=== PATIENT | female | born 1955 ===

== ENCOUNTER 2017-02-28 08:00 | Day surgery (SDC) | payer OTHER ==
--- NOTE | 2017-02-28 08:31 | ED PDOC ---
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 She has severe numbness and tingling to distal lateral side of hand with severe pain to thumb and wrist. She has tried extensive outpatient therapy without relief. Orthopedist: Dr. Nguyen Past Medical History Reviewed: Historical Data, Nursing Documentation, Vital Signs Vital Signs: Last Vital Signs Temp 98 F 02/28/17 15:00 Pulse 86 02/28/17 15:00 Resp 18 02/28/17 15:00 BP 120/70 02/28/17 15:00 Pulse Ox 99 02/28/17 15:35 - Medical History PMH: Asthma, Hypothyroidism Denies: Diabetes, HTN - Surgical History Surgical History: No Surg Hx - Family History Family History: States: Unknown Family Hx - Social History Drugs: Denies - Home Medications Home Medications: Ambulatory Orders Medication Instructions Recorded Levothyroxine [Synthroid] 150 mcg PO DAILY 02/28/17 oxyCODONE/Acetaminophen [Percocet 1 ea PO Q8 PRN #15 tab 02/28/17 5/325 mg Tab] - Allergies Allergies/Adverse Reactions: Allergies Allergy/AdvReac Type Severity Reaction Status Date / Time No Known Allergies Allergy Verified 02/28/17 08:36 Review of Systems ROS Statement: Except As Marked, All Systems Reviewed And Found Negative Musculoskeletal: Positive for: Other (wrist pain) Physical Exam - Reviewed Nursing Documentation Reviewed: Yes Vital Signs Reviewed: Yes - Physical Exam Appears: Positive for: Well, Non-toxic, No Acute Distress Head Exam: Positive for: ATRAUMATIC, NORMAL INSPECTION, NORMOCEPHALIC Skin: Positive for: Warm, Dry Eye Exam: Positive for: EOMI, PERRL Cardiovascular/Chest: Positive for: Regular Rate, Rhythm Respiratory: Positive for: Normal Breath Sounds. Negative for: Rales, Rhonchi, Wheezing Extremity: Positive for: Other (pain and tenderness to distal right wrist. Positive tinnel sign.) - Laboratory Results Result Diagrams: 02/28/17 09:10 02/28/17 09:10 - ECG O2 Sat by Pulse Oximetry: 100 (RA) Pulse Ox Interpretation: Normal Medical Decision Making Medical Decision Makin Case was discussed with Dr. Nguyen (orthopedist). Case discussed with hospitalist Dr. Colby. 0845 Dr. Colby at bedside. Disposition - Clinical Impression Clinical Impression: Wrist pain - Patient ED Disposition Is Patient to be Admitted: Yes - Disposition Disposition Time: 08:59 Condition: GOOD - Pt Status Changed To: Hospital Disposition Of: Observation Additional Comments - Additional Comments Additional Comments: Scribe Attestation Documented by Alan Gonzalez acting as a scribe for Bibiana Keith DO. Provider Attestation: All medical record entries made by the Scribe were at my direction and personally dictated by me. I have reviewed the chart and agree that the record accurately reflects my personal performance of the history, physical exam, medical decision making, and the department course for this patient. I have also personally directed, reviewed, and agree with the discharge instructions and disposition.
--- NOTE | 2017-02-28 09:17 | CP.PCM.HP ---
History of Present Illness - History of Present Illness History of Present Illness: Chief Complaint : right hand pain and numbness HPI: 61 y/o lady with Hx of Hypothyroidism, came in because of right hand, wrist pain and arm numbness. Patient states that she has had the symptoms for the past 5-6 months. Her pain is mostly on her right wrist and thumb and pain radiates to the forearm , this is accompanied by numbness of her hand and her arm. She also noticed some thumb weakness and at times unable to hold things things with her right hand. Her pain has worsened the past few days , now 8-9 /10 and no longer relieved by conservative treatment ( pain meds , splint ) recommended by her primary care physician . Full Code Surrogate Decision maker : sister Jacquelyn Present on Admission - Present on Admission Any Indicators Present on Admission: No Review of Systems - Review of Systems All systems: reviewed and no additional remarkable complaints except - Constitutional Constitutional: absent: Fever, Headache - EENT Eyes: absent: Change in Vision Nose/Mouth/Throat: absent: Nasal Congestion, Sore Throat, Neck Pain - Cardiovascular Cardiovascular: absent: Chest Pain, Chest Pain at Rest, Chest Pain with Activity , Diaphoresis, Dyspnea, Dyspnea on Exertion, Leg Edema - Respiratory Respiratory: absent: Cough, Dyspnea, Dyspnea on Exertion - Gastrointestinal Gastrointestinal: absent: Abdominal Pain, Nausea, Vomiting - Genitourinary Genitourinary: absent: Difficulty Urinating, Dysuria, Hematuria - Musculoskeletal Musculoskeletal: Arthralgias, Stiffness (knee), Tingling (tight hand) - Integumentary Integumentary: absent: Lesions - Neurological Neurological: Numbness ( right arm, and hand numbness). absent: Confusion, Focal Weakness - Psychiatric Psychiatric: absent: Anxiety, Depression - Endocrine Endocrine: absent: Polydipsia, Polyphagia, Polyuria - Hematologic/Lymphatic Hematologic: absent: Easy Bleeding, Easy Bruising Past Patient History - Infectious Disease Hx of Infectious Diseases: None - Tetanus Immunizations Tetanus Immunization: Unknown - Past Medical History & Family History Past Medical History?: Yes Past Family History: Reviewed and not pertinent Pertinent Family History: Colon pre cancerous - mother father - unknown hx - Past Social History Smoking Status: Never Smoked Chewing Tobacco Use: No Cigar Use: No Occupation: works in a cafeteria Alcohol: None Drugs: Denies Home Situation {Lives}: With Family Domestic Violence: Negative - CARDIAC Hx Cardiac Disorders: No Hx Hypertension: No - PULMONARY Hx Asthma: Yes - NEUROLOGICAL Hx Neurological Disorder: No - HEENT Hx HEENT Problems: No - RENAL Hx Chronic Kidney Disease: No - ENDOCRINE/METABOLIC Hx Endocrine Disorders: Yes Hx Hypothyroidism: Yes - HEMATOLOGICAL/ONCOLOGICAL Hx Blood Disorders: No - INTEGUMENTARY Hx Dermatological Problems: No - MUSCULOSKELETAL/RHEUMATOLOGICAL Hx Osteoarthritis: Yes - GASTROINTESTINAL Hx Gastrointestinal Disorders: No - GENITOURINARY/GYNECOLOGICAL Hx Genitourinary Disorders: No - PSYCHIATRIC Hx Psychophysiologic Disorder: No Hx Substance Use: No - SURGICAL HISTORY Hx Surgeries: Yes Hx Orthopedic Surgery: Yes (bilat. shoulder- rotator cuff tear) Hx Tubal Ligation: Yes Other/Comment: Colon polyp removal - ANESTHESIA Hx Anesthesia: Yes Hx Anesthesia Reactions: No Meds Allergies/Adverse Reactions: Allergies Allergy/AdvReac Type Severity Reaction Status Date / Time No Known Allergies Allergy Verified 02/28/17 08:36 Physical Exam - Constitutional Appears: No Acute Distress - Head Exam Head Exam: ATRAUMATIC, NORMAL INSPECTION, NORMOCEPHALIC - Eye Exam Eye Exam: EOMI, Normal appearance, PERRL Pupil Exam: NORMAL ACCOMODATION - ENT Exam ENT Exam: Mucous Membranes Moist, Normal External Ear Exam - Neck Exam Neck exam: Positive for: Full Rom. Negative for: Meningismus - Respiratory Exam Respiratory Exam: NORMAL BREATHING PATTERN - Cardiovascular Exam Cardiovascular Exam: REGULAR RHYTHM, +S1, +S2 - GI/Abdominal Exam GI & Abdominal Exam: Normal Bowel Sounds, Soft. absent: Tenderness - Extremities Exam Extremities exam: Positive for: normal capillary refill. 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 absent: CVA tenderness (L), CVA tenderness (R), paraspinal tenderness, vertebral tenderness - Neurological Exam Neurological exam: Alert, CN II-XII Intact, Oriented x3, Reflexes Normal - Psychiatric Exam Psychiatric exam: Normal Affect, Normal Mood - Skin Skin Exam: Dry, Normal Color, Warm Results - Vital Signs Recent Vital Signs: Last Vital Signs Temp 97.0 F L 02/28/17 08:19 Pulse 80 02/28/17 08:19 Resp 18 02/28/17 08:19 BP 137/87 02/28/17 08:19 Pulse Ox 100 02/28/17 08:57 - Labs Result Diagrams: 02/28/17 09:10 Assessment & Plan (1) Carpal tunnel syndrome on right Status: Chronic Comment: Pt came in with severe right hnad pain , weakness and numbness , radiating to the forearm, worsening and failed conservative mgt. Ortho consult : Dr Nguyen. Pain mgt. PT/OT consult. CBC, CMP, PT,PTT,UA,Type and screen (2) Hypothyroidism Status: Chronic Comment: cont Levothyroxine. check TSH Decision To Admit - Pt Status Changed To: Hospital Disposition Of: Observation - . Bed Request Type: Med/Surg Admitting Physician: Sunitha Colby
[2017-02-28 09:33] LABS: BASO % 0.3 % (0.0-2.0); EOS # 0.3 K/uL (0.0-0.7); EOS % 3.9 % (0.0-4.0); HEMATOCRIT 41.6 % (34.0-47.0); LYMPH # 3.2 K/uL (1.0-4.3); LYMPH % 38.8 % (20.0-40.0); MEAN CORPUSCULAR HEMOGLOBIN 29.7 pg (27.0-31.0); MEAN CORPUSCULAR HGB CONC 33.7 g/dL (33.0-37.0); MEAN PLATELET VOLUME 10.8 fl (7.2-11.7); MONO # 0.8 K/uL (0.0-0.8); MONO % 9.9 % (0.0-10.0); NEUT # 3.9 K/uL (1.8-7.0); NEUT % 47.1 % (50.0-75.0); NRBC % 0.2 % (0.0-0.0); RED CELL DISTRIBUTION WIDTH 13.7 % (11.5-14.5); WHITE BLOOD COUNT 8.4 K/uL (4.8-10.8)
[2017-02-28 09:43] LABS: PARTIAL THROMBOPLASTIN TIME 26.7 SECONDS (23.3-32.5)
[2017-02-28 09:44] LABS: ALB/GLOB RATIO 1.3 (1.0-2.1); ALKALINE PHOSPHATASE 95 U/L (38-126); ALT/SGPT 46 U/L (9-52); AST/SGOT 37 U/L (14-36); BILIRUBIN,TOTAL 0.5 mg/dl (0.2-1.3); BLOOD UREA NITROGEN 17 mg/dl (7-17); CALCIUM 9.8 mg/dL (8.4-10.2); CARBON DIOXIDE 28 mmol/L (22-30); CHLORIDE 104 mmol/L (98-107); GFR AFRICAN-AMERICAN > 60; GLUCOSE,RANDOM 116 mg/dL (65-105); POTASSIUM 4.5 MMOL/L (3.6-5.0); SODIUM 144 mmol/l (132-148); TOTAL PROTEIN 8.9 G/DL (6.3-8.2)
[2017-02-28 10:04] LABS: RBC URINE 5 /hpf (0-3); URINE BACTERIA RARE (<OCC); URINE BILIRUBIN NEGATIVE (NEGATIVE); URINE BLOOD NEGATIVE (NEGATIVE); URINE COLOR YELLOW (YELLOW); URINE GLUCOSE (UA) NEG (Normal); URINE KETONE NEGATIVE (NEGATIVE); URINE LEUKOCYTE ESTERASE NEG Leu/uL (Negative); URINE PROTEIN 100 mg/dL (NEGATIVE); URINE UROBILINOGEN 0.2-1.0 mg/dL (0.2-1.0); WBC URINE 3 /hpf (0-5)
[2017-02-28] MEDS ORDERED: Midazolam 2 MG/2 ML VIAL ONE (10:33)
[2017-02-28] MEDS ORDERED: Lidocaine Hydrochloride 5 ML INJ ONE (10:33)
[2017-02-28] MEDS ORDERED: Propofol 10 mg/ml Inj (20 ML) ONE (10:33)
[2017-02-28] MEDS ORDERED: Bupivacaine HCl 0.5% PF (10 ml) Inj ONE (10:48)
[2017-02-28] MEDS ORDERED: Dexamethasone 4 mg/1 ml ONE (10:48)
[2017-02-28] MEDS ORDERED: Bacitracin Ointment 30 GM TUBE ONE (10:49)
[2017-02-28] MEDS ORDERED: Bupivacaine 0.5% Inj(30mL) IJ ONE (11:20)
[2017-02-28] MEDS ORDERED: Bacitracin OINT 15GM TOP ONE (11:20)
--- NOTE | 2017-02-28 11:20 | CP.PCM.CON ---
History of Present Illness - History of Present Illness History of Present Illness: THE PATIENT IS A 61 YEAR OLD FEMALE WHO HAS RIGHT CARPEL TUNNEL SYNDROME WHO CAME TO THE ER DUE TO RIGHT WRIST AND FOREARM NUMBNESS AND PAIN AND IT WAS DECIDED TO PERFORM SURGERY. SHE HAS A HISTORY OF HYPOTHYROIDISM FOR WHICH SHE TAKES LEVOTHYROXINE. CARDIOLOGY WAS ASKED TO SEE HER PRIOR TO SURGERY FOR CLEARANCE.. SHE DENIES CAD OR CHEST PAIN. NO OTHER SIGNIFICANT PMH. Past Patient History - Infectious Disease Hx of Infectious Diseases: None - Tetanus Immunizations Tetanus Immunization: Unknown - Past Medical History & Family History Past Medical History?: Yes Past Family History: Reviewed and not pertinent - Past Social History Smoking Status: Never Smoked Chewing Tobacco Use: No Cigar Use: No Occupation: works in a cafeteria Alcohol: None Drugs: Denies Home Situation {Lives}: With Family Domestic Violence: Negative - CARDIAC Hx Cardiac Disorders: No - PULMONARY Hx Asthma: Yes - NEUROLOGICAL Hx Neurological Disorder: No - HEENT Hx HEENT Problems: No - RENAL Hx Chronic Kidney Disease: No - ENDOCRINE/METABOLIC Hx Endocrine Disorders: Yes - HEMATOLOGICAL/ONCOLOGICAL Hx Blood Disorders: No - INTEGUMENTARY Hx Dermatological Problems: No - MUSCULOSKELETAL/RHEUMATOLOGICAL Hx Osteoarthritis: Yes - GASTROINTESTINAL Hx Gastrointestinal Disorders: No - GENITOURINARY/GYNECOLOGICAL Hx Genitourinary Disorders: No - PSYCHIATRIC Hx Psychophysiologic Disorder: No - SURGICAL HISTORY Hx Surgeries: Yes Hx Orthopedic Surgery: Yes (bilat. shoulder- rotator cuff tear) Hx Tubal Ligation: Yes Other/Comment: Colon polyp removal - ANESTHESIA Hx Anesthesia: Yes Hx Anesthesia Reactions: No Meds Allergies/Adverse Reactions: Allergies Allergy/AdvReac Type Severity Reaction Status Date / Time No Known Allergies Allergy Verified 02/28/17 08:36 Physical Exam - Respiratory Exam Respiratory Exam: Clear to Auscultation Bilateral - Cardiovascular Exam Cardiovascular Exam: REGULAR RHYTHM, +S1, +S2 - Additional Findings Additional findings: EKG NSR Results - Vital Signs Recent Vital Signs: Last Vital Signs Temp 97.0 F L 02/28/17 10:10 Pulse 80 02/28/17 10:10 Resp 18 02/28/17 10:10 BP 137/87 02/28/17 10:10 Pulse Ox 100 02/28/17 08:57 - Labs Result Diagrams: 02/28/17 09:10 02/28/17 09:10 Labs: Laboratory Results - last 24 hr 02/28/17 02/28/17 02/28/17 09:10 09:10 09:20 WBC 8.4 RBC 4.72 Hgb 14.0 Hct 41.6 MCV 88.0 MCH 29.7 MCHC 33.7 RDW 13.7 Plt Count 180 MPV 10.8 Neut % (Auto) 47.1 L Lymph % (Auto) 38.8 [place] % (Auto) 9.9 Eos % (Auto) 3.9 Baso % (Auto) 0.3 Neut # 3.9 Lymph # 3.2 [place] # 0.8 Eos # 0.3 Baso # 0.0 PT 10.1 INR 0.97 APTT 26.7 Sodium 144 Potassium 4.5 Chloride 104 Carbon Dioxide 28 Anion Gap 16 BUN 17 Creatinine 0.8 Est GFR ( Amer) > 60 Est GFR (Non-Af Amer) > 60 Random Glucose 116 H Calcium 9.8 Total Bilirubin 0.5 AST 37 H ALT 46 Alkaline Phosphatase 95 Total Protein 8.9 H Albumin 5.0 Globulin 4.0 H Albumin/Globulin Ratio 1.3 Urine Color Urine Clarity Urine pH Ur Specific [place] Urine Protein Urine Glucose (UA) Urine Ketones Urine Blood Urine Nitrate Urine Bilirubin Urine Urobilinogen Ur Leukocyte Esterase Urine RBC (Auto) Urine Microscopic WBC Ur Squamous Epith Cells Urine Bacteria Blood Type Antibody Screen BBK History Checked 02/28/17 02/28/17 09:20 09:38 WBC RBC Hgb Hct MCV MCH MCHC RDW Plt Count MPV Neut % (Auto) Lymph % (Auto) [place] % (Auto) Eos % (Auto) Baso % (Auto) Neut # Lymph # [place] # Eos # Baso # PT INR APTT Sodium Potassium Chloride Carbon Dioxide Anion Gap BUN Creatinine Est GFR ( Amer) Est GFR (Non-Af Amer) Random Glucose Calcium Total Bilirubin AST ALT Alkaline Phosphatase Total Protein Albumin Globulin Albumin/Globulin Ratio Urine Color Yellow Urine Clarity Slighty-cloudy Urine pH 6.0 Ur Specific [place] 1.032 H Urine Protein 100 Urine Glucose (UA) Neg Urine Ketones Negative Urine Blood Negative Urine Nitrate Negative Urine Bilirubin Negative Urine Urobilinogen 0.2-1.0 Ur Leukocyte Esterase Neg Urine RBC (Auto) 5 H Urine Microscopic WBC 3 Ur Squamous Epith Cells 6 H Urine Bacteria Rare Blood Type B POSITIVE Antibody Screen Negative BBK History Checked No verified bt Assessment & Plan - Assessment and Plan (Free Text) Assessment: RIGHT CARPEL TUNNEL SYNDROME HYPOTHYROIDISM STABLE CARDIAC STATUS Plan: THE PATIENT IS CLEARED FOR HER RIGHT CARPEL TUNNEL SYNDROME SURGERY
[2017-02-28] MEDS ORDERED: Morphine 1 mg/ml preservative-free Inj(Duramorph) ONE (11:29)
[2017-02-28] MEDS ORDERED: Morphine 1 mg/ml preservative-free Inj(Duramorph) IM ONE (11:38)
[2017-02-28] MEDS ORDERED: HYDROmorphone 0.5 mg/0.5 ml ISec ONE (12:15)
[2017-02-28] MEDS ORDERED: Lactated Ringer's 1,000 ML IV ONE ×2 (12:16→13:30)
[2017-02-28] MEDS ORDERED: Lactated Ringer's 1,000 ML IV SCH (12:20)
[2017-02-28] MEDS: HYDROmorphone 0.5 mg/0.5 ml ISec IVP PRN ×4 (12:20→13:05)
--- NOTE | 2017-02-28 12:33 | PCM.SURG1 ---
Surgeon's Initial Post Op Note - Surgeon's Notes Surgeon: Patrick Guest Relation Officer: MIGUE Rosas Type of Anesthesia: General Endo Anesthesia Administered By: Dr Lopez Pre-Operative Diagnosis: posttraumatic carpal tunnel syndrome. post traumatic de [place] tenosynovitis Operative Findings: compression median mnerve. tenosynovitis. inflamed epineurium median nerve. tenosynovitis r wrist Post-Operative Diagnosis: same Operation Performed: release carpal tunnel. partial median neurolysis. partial flexor tenosynovectomy. release 1st compartment extensor tendons Specimen/Specimens Removed: tenosynovium/epineurium Estimated Blood Loss: EBL {In ML}: 5 Blood Products Given: N/A Drains Used: No Drains Post-Op Condition: Good Date of Surgery/Procedure: 02/28/17 Time of Surgery/Procedure: 11:20 (time in room/anaethesia inducvtion time 10:40)
--- NOTE | 2017-02-28 13:55 | RAD ---
HISTORY: chest pain/ r/o infiltrate COMPARISON: None available. TECHNIQUE: Chest PA and lateral FINDINGS: Examination limited by habitus. LUNGS: No focal consolidation. Please note that chest x-ray has limited sensitivity for the detection of pulmonary masses. PLEURA: No significant pleural effusion identified. No definite pneumothorax. CARDIOVASCULAR: Cardiomegaly. Ectatic aorta. OSSEOUS STRUCTURES: Degenerative changes. VISUALIZED UPPER ABDOMEN: Unremarkable. OTHER FINDINGS: None. IMPRESSION: No focal consolidation, significant pleural effusion, or definite pneumothorax identified.
[2017-02-28 14:05] VITALS: RESP 18
[2017-02-28 15:34] VITALS: BP 120/70; PULSE 86; TEMP 98
--- NOTE | 2017-02-28 19:06 | CP.PCM.DIS ---
Provider - Provider Attending physician: Sunitha Colby MD Consults: Ortho : Dr Nguyen Cardio: Dr Maya Time Spent in preparation of Discharge (in minutes): 15 Diagnosis - Discharge Diagnosis (1) Carpal tunnel syndrome on right Status: Chronic (2) Hypothyroidism Status: Chronic Hospital Course - Lab Results Lab Results: Most Recent Lab Values WBC 8.4 K/uL (4.8-10.8) 02/28/17 09:10 RBC 4.72 Mil/uL (3.80-5.20) 02/28/17 09:10 Hgb 14.0 g/dL (12.0-16.0) 02/28/17 09:10 Hct 41.6 % (34.0-47.0) 02/28/17 09:10 MCV 88.0 fl (81.0-99.0) 02/28/17 09:10 MCH 29.7 pg (27.0-31.0) 02/28/17 09:10 MCHC 33.7 g/dL (33.0-37.0) 02/28/17 09:10 RDW 13.7 % (11.5-14.5) 02/28/17 09:10 Plt Count 180 K/uL (130-400) 02/28/17 09:10 MPV 10.8 fl (7.2-11.7) 02/28/17 09:10 Neut % (Auto) 47.1 % (50.0-75.0) L 02/28/17 09:10 Lymph % (Auto) 38.8 % (20.0-40.0) 02/28/17 09:10 [place] % (Auto) 9.9 % (0.0-10.0) 02/28/17 09:10 Eos % (Auto) 3.9 % (0.0-4.0) 02/28/17 09:10 Baso % (Auto) 0.3 % (0.0-2.0) 02/28/17 09:10 Neut # 3.9 K/uL (1.8-7.0) 02/28/17 09:10 Lymph # 3.2 K/uL (1.0-4.3) 02/28/17 09:10 [place] # 0.8 K/uL (0.0-0.8) 02/28/17 09:10 Eos # 0.3 K/uL (0.0-0.7) 02/28/17 09:10 Baso # 0.0 K/uL (0.0-0.2) 02/28/17 09:10 PT 10.1 SECONDS (9.6-11.2) 02/28/17 09:20 INR 0.97 (0.92-1.08) 02/28/17 09:20 APTT 26.7 SECONDS (23.3-32.5) 02/28/17 09:20 Sodium 144 mmol/l (132-148) 02/28/17 09:10 Potassium 4.5 MMOL/L (3.6-5.0) 02/28/17 09:10 Chloride 104 mmol/L (98-107) 02/28/17 09:10 Carbon Dioxide 28 mmol/L (22-30) 02/28/17 09:10 Anion Gap 16 (10-20) 02/28/17 09:10 BUN 17 mg/dl (7-17) 02/28/17 09:10 Creatinine 0.8 mg/dL (0.7-1.2) 02/28/17 09:10 Est GFR ( Amer) > 60 02/28/17 09:10 Est GFR (Non-Af Amer) > 60 02/28/17 09:10 Random Glucose 116 mg/dL (65-105) H 02/28/17 09:10 Calcium 9.8 mg/dL (8.4-10.2) 02/28/17 09:10 Total Bilirubin 0.5 mg/dl (0.2-1.3) 02/28/17 09:10 AST 37 U/L (14-36) H 02/28/17 09:10 ALT 46 U/L (9-52) 02/28/17 09:10 Alkaline Phosphatase 95 U/L (38-126) 02/28/17 09:10 Total Protein 8.9 G/DL (6.3-8.2) H 02/28/17 09:10 Albumin 5.0 g/dL (3.5-5.0) 02/28/17 09:10 Globulin 4.0 gm/dL (2.2-3.9) H 02/28/17 09:10 Albumin/Globulin Ratio 1.3 (1.0-2.1) 02/28/17 09:10 Urine Color Yellow (YELLOW) 02/28/17 09:38 Urine Clarity Slighty-cloudy (Clear) 02/28/17 09:38 Urine pH 6.0 (5.0-8.0) 02/28/17 09:38 Ur Specific [place] 1.032 (1.003-1.030) H 02/28/17 09:38 Urine Protein 100 mg/dL (NEGATIVE) 02/28/17 09:38 Urine Glucose (UA) Neg mg/dL (Normal) 02/28/17 09:38 Urine Ketones Negative mg/dL (NEGATIVE) 02/28/17 09:38 Urine Blood Negative (NEGATIVE) 02/28/17 09:38 Urine Nitrate Negative (NEGATIVE) 02/28/17 09:38 Urine Bilirubin Negative (NEGATIVE) 02/28/17 09:38 Urine Urobilinogen 0.2-1.0 mg/dL (0.2-1.0) 02/28/17 09:38 Ur Leukocyte Esterase Neg [place]/uL (Negative) 02/28/17 09:38 Urine RBC (Auto) 5 /hpf (0-3) H 02/28/17 09:38 Urine Microscopic WBC 3 /hpf (0-5) 02/28/17 09:38 Ur Squamous Epith Cells 6 /hpf (0-5) H 02/28/17 09:38 Urine Bacteria Rare (<OCC) 02/28/17 09:38 Blood Type B POSITIVE 02/28/17 09:20 Antibody Screen Negative 02/28/17 09:20 BBK History Checked No verified bt 02/28/17 09:20 - Hospital Course Hospital Course: 61 y/o lady with hx of Hypothyroidism, came in bec of right hand weakness, pain , tingling and numbness, radiating to the forearm . Ortho consulted. Pt underwent Carpal Tunnel Release. (1) Carpal tunnel syndrome on right Status: Chronic Comment: Pt came in with severe right hand pain , weakness and numbness , radiating to the forearm, worsening and failed conservative mgt. Ortho consult : Dr Nguyen. - Pt underwent carpal Tunnel Release Pain mgt (2) Hypothyroidism Status: Chronic Comment: cont Levothyroxine. Discharge Exam - Head Exam Head Exam: ATRAUMATIC, NORMAL INSPECTION, NORMOCEPHALIC - Eye Exam Eye Exam: EOMI, Normal appearance, PERRL Pupil Exam: NORMAL ACCOMODATION - ENT Exam ENT Exam: Mucous Membranes Moist, Normal External Ear Exam - Neck Exam Neck exam: Full Rom - Respiratory Exam Respiratory Exam: Prolonged Expiratory Phase. absent: Respiratory Distress - Cardiovascular Exam Cardiovascular Exam: REGULAR RHYTHM, +S1, +S2 - GI/Abdominal Exam GI & Abdominal Exam: Normal Bowel Sounds, Soft. absent: Tenderness - Extremities Exam Extremities exam: normal capillary refill, pedal pulses present Additional comments: right hand with dressing with sling immobilizer - Back Exam Back exam: FULL ROM, NORMAL INSPECTION. absent: CVA tenderness (L), CVA tenderness (R), paraspinal tenderness - Neurological Exam Neurological exam: Alert, CN II-XII Intact, Normal Gait, Oriented x3, Reflexes Normal - Psychiatric Exam Psychiatric exam: Normal Affect, Normal Mood - Skin Skin Exam: Dry, Normal Color, Warm Discharge Plan - Discharge Medications Prescriptions: oxyCODONE/Acetaminophen [Percocet 5/325 mg Tab] 1 ea PO Q8 PRN #15 tab PRN Reason: Pain, Moderate (4-7) - Follow Up Plan Condition: GOOD Disposition: HOME/ ROUTINE Additional Instructions: ff up with dr Nguyen in 1 wk ff up with PMD adriel Referrals: Smooth Nguyen III, MD [Staff Provider] -
--- NOTE | 2017-03-01 02:12 | CARD ---
APPROVED REPORT EKG Measurement Heart [id number] <Conclusion> Normal sinus rhythm Normal ECG
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
[2017-03-17 16:03] VITALS: O2SAT 100
== END 2017-02-28 15:35 | disposition home or self-care (01) ==
LOC: H.ER 08:00 → H.SDS 09:37
PROVIDERS: ATTEND Internal Medicine
DX: G56.01 Carpal tunnel syndrome, right upper limb (principal); I10 Essential (primary) hypertension; E66.9 Obesity, unspecified; M65.4 Radial styloid tenosynovitis [de Quervain]